=== PATIENT | female | born 1990 | race Caucasian/White ===

== ENCOUNTER → 2016-12-14 | Outpatient (CLI) | payer OTHER ==
[~2016-12-14] VITALS: Ht 165.1 cm; Wt 107.2 kg
[~2016-12-14] MED LIST: CIPRO500 MG PO; FLEXERIL10 MG PO; JUNEL FE 1/21 TABLET PO; MOTRIN600 MG PO; NAPROSYN500 MG PO; TYLENOL EXTRA500 MG PO
[2016-12-14 14:39] VITALS: BP 134/66
== END | disposition home or self-care (01) ==
LOC: IVINF 14:00
DX: Z31.82 Encounter for Rh incompatibility status (principal); Z3A.28 28 weeks gestation of pregnancy
CPT/HCPCS: 96372; J2790

== ENCOUNTER 2017-02-08 09:51 | Outpatient (CLI) | payer OTHER ==
[~2017-02-08] VITALS: Ht 165.1 cm; Wt 115.5 kg
[2017-02-08 11:28] LABS: ADD MIUA? YES; BILIRUBIN NEGATIVE; BLOOD NEGATIVE; COLOR YELLOW ((YELLOW)); GLUCOSE (STRIP) NEGATIVE; KETONES NEGATIVE; LEUKOCYTES TRACE; NITRITE NEGATIVE; PROTEIN (STRIP) NEGATIVE; SPECIFIC GRAVITY 1.021 (1.000-1.030); UROBILINOGEN 0.2 MG/DL (0.2-1.0)
[2017-02-08 11:32] LABS: BACTERIA RARE /HPF; EPITHELIAL CELLS 1+ /HPF; MUCUS TRACE /LPF; RED BLOOD CELLS 0-5 /HPF (0-5); UCUL ADDED? NO; WHITE BLOOD CELLS 0-5 /HPF (0-5)
[2017-02-08] MEDS ORDERED: TYLENOL WITH C1 EACH PO (13:56)
[2017-02-08 14:28] VITALS: BP 127/62
== END 2017-02-08 15:10 | disposition home or self-care (01) ==
LOC: LDRP-OP 09:51 → EME 09:51 → EDSTATUS 14:10 → 2WEST 14:17
PROVIDERS: Emergency Medicine
DX: O26.893 Other specified pregnancy related conditions, third trimester (principal); M54.5 Low back pain; Z3A.37 37 weeks gestation of pregnancy; Z88.0 Allergy status to penicillin
CPT/HCPCS: 59025; 81003; 90686; 99281; 99283; G0378

== ENCOUNTER 2017-03-07 07:26 | Inpatient (IN) | payer OTHER ==
[2017-03-07] VITALS (25 sets, daily range): BP systolic 94–132; BP diastolic 51–81
[~2017-03-07] VITALS: Ht 162.6 cm; Wt 116.8 kg
[~2017-03-07 07:26] MED LIST changes: +TYLENOL WITH C1 EACH PO
[2017-03-07 09:26] LABS: EOSINOPHIL COUNT 0.1 K/uL (0-0.3); IMMATURE GRANULOCYTE (%) 1.9 % (0.0-0.7); IMMATURE GRANULOCYTE COUNT 0.3 K/uL; MCH 29.2 PG (29.0-34.0); MCHC 33.7 G/DL (30.0-36.0); MCV 86.8 FL (83-99); MEAN PLAT.VOLUME 10.1 uM^3 (9.5-12.4); MONOCYTE COUNT 1.2 K/uL (0-0.8); NEUTROPHIL (%) 68.3 % (45-76); PLATELET COUNT 214 K/uL (156-360); RBC DIS.WIDTH-CV 13.1 % (11.8-14.6); RED BLOOD COUNT 4.38 M/uL (3.80-5.20); WHITE BLOOD COUNT 14.7 K/uL (4.1-10.2)
[2017-03-07] MEDS ORDERED: FLEXERIL10 MG PO (10:15)
[2017-03-07] MEDS ORDERED: PERCOCET 5/31 TABLET PO (10:16)
[2017-03-08] VITALS (11 sets, daily range): BP systolic 89–160; BP diastolic 50–96
[2017-03-08 10:00] LABS: EOSINOPHIL (%) 0.2 % (0-5); HEMATOCRIT 28.9 % (36.0-46.0); IMMATURE GRANULOCYTE COUNT 0.2 K/uL; INSTRUMENT ABS NEUTROPHIL CT 12.7 K/uL; LYMPHOCYTE COUNT 2.3 K/uL (1.0-2.8); MCH 28.4 PG (29.0-34.0); MCHC 32.9 G/DL (30.0-36.0); MCV 86.5 FL (83-99); MEAN PLAT.VOLUME 10.3 uM^3 (9.5-12.4); MONOCYTE (%) 8.3 % (3-12); MONOCYTE COUNT 1.4 K/uL (0-0.8); NEUTROPHIL (%) 76.7 % (45-76); NEUTROPHIL COUNT 12.7 K/uL (1.8-6.4); PLATELET COUNT 174 K/uL (156-360); RBC DIS.WIDTH-CV 13.3 % (11.8-14.6); RBC DIS.WIDTH-SD 41.8 % (39-53); WHITE BLOOD COUNT 16.5 K/uL (4.1-10.2)
[2017-03-08 10:11] LABS: RED BLOOD COUNT 3.34 M/uL (3.80-5.20)
[2017-03-09 02:09] VITALS: BP 105/57
[2017-03-09 07:23] VITALS: BP 114/59
[2017-03-09 10:47] VITALS: BP 108/57
[2017-03-09 14:23] VITALS: BP 107/65
[2017-03-09 20:15] VITALS: BP 130/79
[2017-03-09 23:34] VITALS: BP 120/57
[2017-03-10 04:00] VITALS: BP 131/71
[2017-03-10 07:40] VITALS: BP 104/57
[2017-03-10] MEDS ORDERED: IBUPROFEN800 MG PO (09:53)
[2017-03-10] MEDS ORDERED: ENDOCET 5-3251 EACH PO (09:53)
[2017-03-10] MEDS ORDERED: FERRO-TIME325 MG PO (09:55)
[2017-03-10 14:04] VITALS: BP 130/71
== END 2017-03-10 19:45 | disposition home or self-care (01) | DRG 765 ==
LOC: LDRP-OP → 2WEST 07:27 → LDRP-OP 08:02 → 2WEST 23:27 → LDRP-OP 04-02 15:37
PROVIDERS: Advanced Practice Midwife; Obstetrics & Gynecology
PROC: 10D00Z1 Extraction of Products of Conception, Low, Open Approach (ICD-10-PCS; principal; 2017-03-07)
PROC: 3E0R3BZ Introduction of Anesthetic Agent into Spinal Canal, Percutaneous Approach (ICD-10-PCS; principal; 2017-03-07)
PROC: 3E033VJ Introduction of Other Hormone into Peripheral Vein, Percutaneous Approach (ICD-10-PCS; principal; 2017-03-07)
PROC: 00HU33Z Insertion of Infusion Device into Spinal Canal, Percutaneous Approach (ICD-10-PCS; principal; 2017-03-07)
PROC: 0U7C7ZZ Dilation of Cervix, Via Natural or Artificial Opening (ICD-10-PCS; principal; 2017-03-07)
PROC: 10907ZC Drainage of Amniotic Fluid, Therapeutic from Products of Conception, Via Natural or Artificial Opening (ICD-10-PCS; principal; 2017-03-07)
DX: O62.1 Secondary uterine inertia (principal); O33.9 Maternal care for disproportion, unspecified; O62.0 Primary inadequate contractions; O99.02 Anemia complicating childbirth; D62 Acute posthemorrhagic anemia; O69.81X0 Labor and delivery complicated by cord around neck, without compression, not applicable or unspecified; O99.214 Obesity complicating childbirth; E66.9 Obesity, unspecified; Z68.34 Body mass index [BMI] 34.0-34.9, adult; O99.814 Abnormal glucose complicating childbirth; Z3A.40 40 weeks gestation of pregnancy; Z37.0 Single live birth; Z87.891 Personal history of nicotine dependence
CPT/HCPCS: 85025; 86850; 86870; 86900; 86901; 86905; 86920; 88307; C1755; J0690; J2175; J2274; J2405; J7120

== ENCOUNTER 2017-03-15 02:16 | Emergency (ER) | payer OTHER ==
[~2017-03-15] VITALS: Ht 167.6 cm; Wt 116.3 kg
[~2017-03-15 02:16] MED LIST changes: +ENDOCET 5-3251 EACH PO; +FERRO-TIME325 MG PO; +IBUPROFEN800 MG PO; +PERCOCET 5/31 TABLET PO
[2017-03-15 03:24] LABS: EOSINOPHIL (%) 2.6 % (0-5); EOSINOPHIL COUNT 0.2 K/uL (0-0.3); IMMATURE GRANULOCYTE (%) 0.9 % (0.0-0.7); IMMATURE GRANULOCYTE COUNT 0.1 K/uL; LYMPHOCYTE COUNT 2.9 K/uL (1.0-2.8); MCH 28.5 PG (29.0-34.0); MCHC 32.5 G/DL (30.0-36.0); MCV 87.8 FL (83-99); MEAN PLAT.VOLUME 8.8 uM^3 (9.5-12.4); MONOCYTE (%) 8.1 % (3-12); MONOCYTE COUNT 0.7 K/uL (0-0.8); NEUTROPHIL (%) 55.5 % (45-76); RBC DIS.WIDTH-CV 13.3 % (11.8-14.6); RBC DIS.WIDTH-SD 42.2 % (39-53); RED BLOOD COUNT 3.19 M/uL (3.80-5.20); WHITE BLOOD COUNT 8.9 K/uL (4.1-10.2)
[2017-03-15 03:27] LABS: PLATELET COUNT 286 K/uL (156-360)
[2017-03-15 03:35] LABS: CHLORIDE 109 mEq/L (99-109); POTASSIUM 3.6 mEq/L (3.7-5.4); SODIUM 140 mEq/L (136-147)
[2017-03-15 03:37] LABS: GLUCOSE 93 mg/dL (70-99)
[2017-03-15 03:38] LABS: ANION GAP 7 MEQ/L (2-14)
[2017-03-15 03:40] LABS: GFR ESTIMATE (CALCULATED) > 59 mL/min/
[2017-03-15 03:41] LABS: UREA NITROGEN (BUN) 9 mg/dL (9-23)
[2017-03-15 03:44] LABS: TROP-I INTERPRETATION NEGATIVE; TROPONIN-I < 0.01 ng/mL (0.0-0.30)
[2017-03-15 04:41] LABS: ADD MIUA? YES; BILIRUBIN NEGATIVE; BLOOD MODERATE; COLOR STRAW ((YELLOW)); GLUCOSE (STRIP) NEGATIVE; KETONES NEGATIVE; LEUKOCYTES SMALL; NITRITE NEGATIVE; PROTEIN (STRIP) NEGATIVE; UROBILINOGEN 0.2 MG/DL (0.2-1.0)
[2017-03-15 05:16] LABS: BACTERIA 1+ /HPF; EPITHELIAL CELLS RARE /HPF; MUCUS TRACE /LPF; UCUL ADDED? YES; WHITE BLOOD CELLS 20-30 /HPF (0-5)
[2017-03-15] MEDS ORDERED: MACROBID100 MG PO (06:33)
[2017-03-15 06:46] VITALS: BP 129/80
== END 2017-03-15 07:00 | disposition home or self-care (01) ==
LOC: EME 02:16
PROVIDERS: Emergency Medicine
DX: O86.89 Other specified puerperal infections (principal); N39.0 Urinary tract infection, site not specified; O12.05 Gestational edema, complicating the puerperium; O90.89 Other complications of the puerperium, not elsewhere classified; R06.02 Shortness of breath; Z87.891 Personal history of nicotine dependence; Z88.0 Allergy status to penicillin
CPT/HCPCS: 71010; 80048; 81003; 83880; 84484; 85025; 87086; 93005; 93970; 99281; 99285; J1940